=== PATIENT | female | born 1965 | race Caucasian/White ===

== ENCOUNTER 2018-05-19 10:24 | Day surgery (SDC) | payer OTHER ==
[2018-05-19] MEDS ORDERED: ONDANSETRON 4 MG INJ (13:24)
[2018-05-19] MEDS ORDERED: LIDOCAINE 4% SOLUTION 50 ML BTL (13:25)
== END 2018-05-19 15:54 | disposition home or self-care (01) ==
LOC: GIL 10:24
DX: R10.13 Epigastric pain (principal); R14.0 Abdominal distension (gaseous)
CPT/HCPCS: 43239; 88305